=== PATIENT | male | born 1965 | race Native Hawaiian/Other Pacific Islander ===

== ENCOUNTER 2019-09-20 06:27 | Emergency (ER) | payer BC ==
[~2019-09-20] VITALS: Ht 180.3 cm; Wt 97.5 kg
[2019-09-20 07:58] VITALS: BP 120/72; TEMP 99
== END 2019-09-20 07:58 | disposition home or self-care (01) ==
LOC: ED 06:27
DX: J10.1 Influenza due to other identified influenza virus with other respiratory manifestations (principal); F17.290 Nicotine dependence, other tobacco product, uncomplicated
CPT/HCPCS: 87502; 87651; 99283